=== PATIENT | male | born 1935 | race African-American/Black ===

== ENCOUNTER 2022-12-22 21:25 | Emergency (ER) | payer OTHER ==
[~2022-12-22] VITALS: Ht 170.2 cm; Wt 91.0 kg
[2022-12-22 21:35] VITALS: O2SAT 99
[2022-12-22] MEDS ORDERED: SODIUM CHLORIDE 0.9% 1,000 ML IV ONE (22:45)
[2022-12-22 22:58] LABS: CHLORIDE 107 mEq/L (98-107); HEMATOCRIT. 42.1 % (42.0-52.0); HEMOGLOBIN. 13.9 g/dL (14.0-18.0); MEAN CORPUSCULAR HEMOGLOBIN 29.5 pg (28.0-32.0); MEAN CORPUSCULAR VOLUME 89.4 fL (80.0-94.0); MEAN PLATELET VOLUME 7.3 fl (7.4-10.4); PLATELET 189 x1000/uL (130-400); RED BLOOD CELL COUNT 4.71 mill/uL (4.7-6.1); RED CELL DISTRIBUTION WIDTH 14.9 % (11.6-14.6)
[2022-12-22 23:24] LABS: PLATELET ESTIMATE NORMAL
[2022-12-23] MEDS ORDERED: CEFTRIAXONE 1GM PREMIX 50 ML IV NR (03:00)
[2022-12-23 03:54] LABS: CLARITY URINE CLEAR (CLEAR); COLOR URINE YELLOW (YELLOW); KETONES URINE NEGATIVE (NEGATIVE); LEUKOCYTE ESTERASE URINE 1+ (NEGATIVE); NITRITE URINE POSITIVE (NEGATIVE); OCCULT BLOOD URINE NEGATIVE (NEGATIVE); PH URINE 5.5 (4.5-8.0); PROTEIN URINE NEGATIVE (NEGATIVE); SPECIFIC GRAVITY URINE 1.016 (1.005-1.030)
[2022-12-23 07:52] VITALS: BP 166/64; PULSE 78; RESP 16; TEMP 100
[2022-12-23] MEDS ORDERED: ONDANSETRON HCL 4MG/2ML INJ IV ONE (08:15)
== END 2022-12-23 08:24 | disposition short-term general hospital (02) ==
LOC: ER 21:25
DX: A41.9 Sepsis, unspecified organism (principal); R55 Syncope and collapse; E11.9 Type 2 diabetes mellitus without complications; I10 Essential (primary) hypertension
CPT/HCPCS: 99291; 96374; 96375; 80053; 83605 ×2; 85025; 84484 ×2; 36415 ×2; 71045; 93005; 70450; 81003; 87040; 74176; J7030; J0696; J2405